=== PATIENT | female | born 1990 | race African-American/Black ===

== ENCOUNTER 2019-12-11 10:08 | Inpatient (IN) | payer MEDICAID ==
[~2019-12-11] VITALS: Ht 167.6 cm; Wt 68.9 kg
[2019-12-11] MEDS: LACTATED RINGERS 1,000 ML IV SCH ×3 (10:30→15:02)
[2019-12-11] MEDS ORDERED: BUTORPHANOL TARTRATE 2 MG/ML VIAL IV PRN (11:30)
[2019-12-11] MEDS ORDERED: METHYLERGONOVINE MALEATE 0.2 MG/ML IM PRN (11:30)
[2019-12-11] MEDS ORDERED: MISOPROSTOL 100MCG TABLET VG SCH (11:30)
[2019-12-11] MEDS ORDERED: CARBOPROST TROMETHAMINE 250 MCG/ML AMPUL IM PRN (11:30)
[2019-12-11] MEDS ORDERED: NALOXONE HCL 0.4 MG/ML 1ML VIAL IM PRN (11:30)
[2019-12-11] MEDS ORDERED: LIDOCAINE HCL 1% 20ML VIAL (Pyxis) INJ INFIL SCH (11:30)
[2019-12-11 12:06] LABS: BASOPHILS % 0.3 % (0.0-2.0); EOSINOPHILS % 0.2 % (0.0-5.0); HEMATOCRIT. 34.6 % (36.0-48.0); HEMOGLOBIN. 11.6 g/dL (12.0-16.0); LYMPHOCYTES % 12.4 % (20.0-50.0); MEAN CORPUSCULAR HEMOGLOBIN 32.8 pg (28.0-32.0); MEAN CORPUSCULAR VOLUME 97.8 fL (81.0-99.0); MEAN PLATELET VOLUME 8.3 fl (7.4-10.4); NEUTROPHILS % 79.1 % (40.0-76.0); PLATELET 240 x1000/uL (130-400); RED BLOOD CELL COUNT 3.54 mill/uL (4.2-5.4); RED CELL DISTRIBUTION WIDTH 13.4 % (11.6-14.6)
[2019-12-11 12:07] LABS: CLARITY URINE CLEAR (CLEAR); COLOR URINE YELLOW (YELLOW); KETONES URINE 1+ (NEGATIVE); LEUKOCYTE ESTERASE URINE TRACE (NEGATIVE); NITRITE URINE NEGATIVE (NEGATIVE); OCCULT BLOOD URINE NEGATIVE (NEGATIVE); PH URINE 6.5 (4.5-8.0); PROTEIN URINE NEGATIVE (NEGATIVE); SPECIFIC GRAVITY URINE 1.013 (1.005-1.030); UROBILINOGEN URINE 0.2 E.U./dL (0.2-1.0)
[2019-12-11 12:16] LABS: INR 0.9; PARTIAL THROMBOPLASTIN TIME 26.8 sec (23.4-31.0); PROTHROMBIN TIME 9.7 sec (9.6-11.0)
[2019-12-11 12:24] LABS: *AMPHETAMINES SCREEN URINE NEGATIVE (NEGATIVE); *BARBITURATES SCREEN URINE NEGATIVE (NEGATIVE); *BENZODIAZEPINES SCREEN URINE NEGATIVE (NEGATIVE); *COCAINE SCREEN URINE NEGATIVE (NEGATIVE)
[2019-12-11 12:25] LABS: CANNABINOID URINE SCREEN NEGATIVE (NEGATIVE); METHADONE URINE SCREEN NEGATIVE (NEGATIVE); OPIATES URINE SCREEN NEGATIVE (NEGATIVE); PHENCYCLIDINE URINE SCREEN NEGATIVE (NEGATIVE)
[2019-12-11 12:56] LABS: HEPATITIS B SURFACE ANTIGEN NEGATIVE
[2019-12-11] MEDS ORDERED: DINOPROSTONE 10MG VAGINAL INSERT VG NR (13:00)
[2019-12-11] MEDS ORDERED: ROPIVACAINE HCL/PF EPIDURAL 200 ML EP SCH (13:30)
[2019-12-11] MEDS: DEXT 5%/LR + PITOCIN 20UNITS/L 1,000 ML IV SCH ×2 (13:52→21:15)
[2019-12-11] MEDS ORDERED: ONDANSETRON HCL 4MG/2ML INJ IV NR (18:15)
[2019-12-11] MEDS ORDERED: LIDOCAINE HCL 1% 20ML VIAL (Pyxis) INJ ONE (19:21)
[2019-12-11] MEDS ORDERED: LANOLIN OINT 7GM TUBE TOP PRN (20:15)
[2019-12-11] MEDS ORDERED: BISACODYL 10MG SUPP PR PRN (20:15)
[2019-12-11] MEDS ORDERED: DEXT 5%/LR + PITOCIN 20UNITS/L 1,000 ML IV SCH (20:15)
[2019-12-11] MEDS ORDERED: IBUPROFEN 400MG TABLET PO PRN (20:15)
[2019-12-11] MEDS ORDERED: DOCUSATE SODIUM 100MG CAPSULE PO SCH (21:00)
[2019-12-11] MEDS: IBUPROFEN 800MG TABLET PO PRN (22:09)
[2019-12-11 22:15] VITALS: BP 114/63
[2019-12-11] MEDS: SIMETHICONE 80MG TABLET CHEW PO SCH (22:30)
[2019-12-11] MEDS: MAGNESIUM/ALUMINUM HYDROXIDE/SIMETHICONE 30ML UDC PO SCH (22:30)
[2019-12-11 23:00] VITALS: BP 112/60
[2019-12-12] MEDS: IBUPROFEN 800MG TABLET PO PRN ×3 (03:10→15:36)
[2019-12-12 04:00] VITALS: BP 90/58
[2019-12-12 06:49] LABS: BASOPHILS % 0.1 % (0.0-2.0); EOSINOPHILS % 0.1 % (0.0-5.0); HEMATOCRIT. 29.8 % (36.0-48.0); HEMOGLOBIN. 10.1 g/dL (12.0-16.0); LYMPHOCYTES % 10.4 % (20.0-50.0); MEAN CORPUSCULAR HEMOGLOBIN 33.1 pg (28.0-32.0); MEAN CORPUSCULAR VOLUME 97.9 fL (81.0-99.0); MEAN PLATELET VOLUME 8.6 fl (7.4-10.4); MONOCYTES % 11.7 % (2.0-8.0); NEUTROPHILS % 77.7 % (40.0-76.0); PLATELET 217 x1000/uL (130-400); RED BLOOD CELL COUNT 3.04 mill/uL (4.2-5.4); RED CELL DISTRIBUTION WIDTH 13.4 % (11.6-14.6)
[2019-12-12 08:35] VITALS: BP 98/61
[2019-12-12] MEDS ORDERED: BENZOCAINE/LANOLIN/ALOE VERA SPRAY TOP PRN (08:45)
[2019-12-12] MEDS ORDERED: BISACODYL 10MG SUPP PR PRN (08:45)
[2019-12-12] MEDS ORDERED: PRENATAL VIT/FE FUMARATE/FA TABLET PO SCH (09:00)
[2019-12-12] MEDS: SIMETHICONE 80MG TABLET CHEW PO SCH ×2 (09:08→13:00)
[2019-12-12] MEDS: MAGNESIUM/ALUMINUM HYDROXIDE/SIMETHICONE 30ML UDC PO SCH ×2 (09:09→12:30)
[2019-12-12 15:36] VITALS: BP 98/61
== END 2019-12-12 17:00 | disposition left against medical advice (07) | DRG 560 ==
LOC: OBSVTOIN 10:08 → 8 EST LDRP 10:08 → 8EST 21:10
PROVIDERS: ADMIT Obstetrics & Gynecology; ATTEND Obstetrics & Gynecology
PROC: 10E0XZZ Delivery of Products of Conception, External Approach (ICD-10-PCS; principal; 2019-12-11)
PROC: 3E0R3BZ Introduction of Anesthetic Agent into Spinal Canal, Percutaneous Approach (ICD-10-PCS; 2019-12-11)
PROC: 00HU33Z Insertion of Infusion Device into Spinal Canal, Percutaneous Approach (ICD-10-PCS; 2019-12-11)
DX: O99.12 Other diseases of the blood and blood-forming organs and certain disorders involving the immune mechanism complicating childbirth (principal); O99.02 Anemia complicating childbirth; D72.829 Elevated white blood cell count, unspecified; Z3A.40 40 weeks gestation of pregnancy; D62 Acute posthemorrhagic anemia; Z53.29 Procedure and treatment not carried out because of patient's decision for other reasons; Z88.5 Allergy status to narcotic agent; Z37.0 Single live birth
CPT/HCPCS: 36415; 80305; 81003; 85025; 86592; 86703; 86762; 86850; 86900; 87340; 99281; J0595; J2405; J2590; J2795; J3490; J7120